=== PATIENT | female | born 1950 | race Caucasian/White ===

== ENCOUNTER → 2019-12-08 | Outpatient (CLI) | payer MEDICARE, OTHER ==
[~2019-12-08] MED LIST: ACETAMINOPHEN325 M1 OR; ALDACTONE25 MG PO; ASPIRIN325 PO; CARVEDILOL12.5 MG PO; CENTRUM SILVER1 EAC1 PO; CENTRUM SILVER1 EAC4 PO; COUMADIN 3 MG TA3 M1 PO; COUMADIN 5 MG TA5 M1 PO; EFFEXOR75 MG PO; IRON325 PO; JANUMET 50-1,01 EACH PO; LASIX 40 MG TAB40 M1 PO; LEVOXYL112 MCG PO; LORTAB 5-500 T1 EAC1 PO; METFORMIN HCL500 MG PO; NIASPAN 500 MG500 M1 PO; POTASSIUM20 PO; SORINE 80 MG TA80 M1 PO; TIROSINT150 MCG PO; TRILIPIX135 MG PO; VITAMIN D 5050000 I1 PO; ZESTRIL10 MG PO
[2019-12-08 08:37] LABS: ABSOLUTE BASOPHILS 0.1 thou/uL (0.0-0.2); ABSOLUTE EOSINOPHILS 0.2 thou/uL (0.0-0.7); ABSOLUTE LYMPHOCYTES 1.3 thou/uL (0.8-5.3); ABSOLUTE MONOCYTES 0.5 thou/uL (0.0-1.2); ABSOLUTE NEUTROPHILS 4.3 thou/uL (1.6-8.1); EOSINOPHILS 2.4 %; HEMATOCRIT 35.9 % (37.0-47.0); HEMOGLOBIN 12.3 gm/dL (12.0-15.0); LYMPHOCYTES 20.2 %; MCH 32.6 pg (26.0-34.0); MCHC 34.3 g/dL (28.0-37.0); MONOCYTES 8.3 %; NUCLEATED RBCS 0 /100WBC; PLATELET COUNT* 229 thou/uL (150-400); POLYS 68.1 %; RBC 3.78 mil/uL (4.20-5.00); RDW-CV 12.7 % (10.5-14.5); WBC 6.3 thou/uL (4.0-11.0)
[2019-12-08 08:48] LABS: ALBUMIN 3.8 g/dL (3.4-5.0); CREATININE 1.4 mg/dL (0.6-1.3); POTASSIUM 4.7 mmol/L (3.5-5.1); TOTAL BILIRUBIN 0.5 mg/dL (<0.1-1.0); TOTAL PROTEIN 6.9 g/dL (6.4-8.2)
== END ==
LOC: M.LAB 11-25 15:40
PROVIDERS: ATTEND Internal Medicine Cardiovascular Disease
DX: K44.9 Diaphragmatic hernia without obstruction or gangrene (principal); I48.91 Unspecified atrial fibrillation

== ENCOUNTER → 2019-12-10 | Outpatient (CLI) | payer MEDICARE, OTHER ==
[2019-12-10] VITALS (12 sets, daily range): BP systolic 101–154; BP diastolic 51–111
[~2019-12-10] MED LIST changes: +ENTRESTO 49 MG1 EACH PO; +MAGNESIUM OXID400 M2 PO; +XARELTO20 MG PO
--- NOTE | 2019-12-10 14:16 | TEE ---
[place] [address] TRANSESOPHAGEAL ECHOCARDIOGRAM Name: DENAE WEST Room: [facility]#: [id number] Admission: 12/10/19 Attend Phys: Marvin Nogueira Discharge: Date of : 48 Date of Service: 12/10/19 1416 Report #: [id number] THIS REPORT FOR: cc: Greg Cruz MD,Olivier Leiva MD, MD [facility] ~ APPROVED REPORT Study performed: 12/10/2019 09:39:16 EXAM: Transesophageal Echocardiogram Patient Location: Out-Patient Status: routine BSA: 1.91 HR: 72 bpm BP: 144/80 mmHg Rhythm: NSR Other Information Study Quality: Excellent Indications pre-ablation Echo Enhancing Agent Indication: Rule out Shunt Agent(s) / Amount(s) Used: Agitated Saline 20 cc Comments: 2 bubble studies Procedure After obtaining informed consent, patient underwent transesophageal echo in the [facility] [facility]. Type of Sedation : Conscious Sedation Sedation start time: 1058 Case end Time: 1110 Sedation was achieved intravenously with: Versed (4) Fentanyl (75) Transesophageal probe was inserted and advanced into esophagus without difficulty by Olivier Nelson MD, FAC. Echo enhancement indication: R/O Septal defect. Echo enhancement agent administered: Agitated Saline The HEIDE was performed with complications. Throughout the procedure, the blood pressure, pulse oximetry, cardiac rhythm, and rate were monitored. The patient tolerated the procedure without adverse effects. Recovery [address] [address] TRANSESOPHAGEAL ECHOCARDIOGRAM Name: NICOLEHERIBERTODENAE Cagle Room: [facility]#: [id number] Admission: 12/10/19 [facility] Dis[facility]: Date of : 48 Date of Service: 12/10/19 1416 Report #: [id number] from conscious sedation was uneventful and vital signs were stable. Left Ventricle Left ventricle is mildly dilated. There is global hypokinesis of the left ventricle. There is normal left ventricular wall thickness. Left ventricular systolic function is severely decreased. LVEF is 25-30%. Right Ventricle The right ventricle is normal size. The right ventricular systolic function is normal. Pacemaker lead is present in the right ventricle. Atria No thrombus is visualized in the left atrium or appendage. Left atrium is mildly dilated. The interatrial septum is intact with no evidence for an atrial septal defect. The right atrium size is normal. Aortic Valve The Aortic valve is sclerotic. No aortic regurgitation is present. There is no aortic valvular stenosis. Mitral Valve The mitral valve is normal in structure. Moderate mitral regurgitation. No evidence of mitral valve stenosis. Tricuspid Valve The tricuspid valve is normal in structure. There is no tricuspid valve regurgitation noted. Pulmonic Valve The pulmonary valve is normal in structure. There is no pulmonic valvular regurgitation. Great Vessels The aortic root is normal in size. Pericardium There is no pericardial effusion. <Conclusion> Left ventricle is mildly dilated. LVEF is 25-30%. No thrombus is visualized in the left atrium or appendage. Left [place] [address] TRANSESOPHAGEAL ECHOCARDIOGRAM Name: DENAE WEST Room: [facility]#: [id number] Admission: 12/10/19 Attend Phys: Marvin Nogueira Discharge: Date of : 48 Date of Service: 12/10/191415 Report #: [id number] The Aortic valve is sclerotic. Moderate mitral regurgitation. The interatrial septum is intact with no evidence for an atrial septal defect. <ELECTRONICALLY SIGNED> By: Olivier Nelson MD, FACC 12/10/19 141 15 15 Olivier Nelson MD, FACC /INF
== END | disposition home or self-care (01) ==
LOC: M.CL 09:27
PROVIDERS: ATTEND Internal Medicine Cardiovascular Disease
DX: I48.91 Unspecified atrial fibrillation (principal); I34.0 Nonrheumatic mitral (valve) insufficiency; I42.9 Cardiomyopathy, unspecified; Z98.890 Other specified postprocedural states; Z79.899 Other long term (current) drug therapy; Z79.01 Long term (current) use of anticoagulants